=== PATIENT | male | born 1955 | race Caucasian/White ===

== ENCOUNTER → 2019-10-27 08:49 | Outpatient (CLI) | payer OTHER, SELFPAY ==
[2017-07-02 17:30] VITALS: BMI 31.4
[2019-10-27 10:45] LABS: ALB/GLOB Ratio 1.1 RATIO (0.9-2.4); AST(SGOT) 23 U/L (15-37); Alanine Aminotransfer ALT/SGPT 32 U/L (16-61); Albumin, Serum 3.9 g/dL (3.2-5.0); Alkaline Phosphatase 47 U/L (45-117); Anion Gap 4 (5-15); BUN 13 mg/dL (7-18); BUN/Creat Ratio 14.7 RATIO (10-20); Chloride 107 mmol/L (98-107); Cholesterol 235 mg/dL (200); Creatinine, Serum 0.89 mg/dL (0.70-1.30); EST Glomerular Filtration Rate 92 mL/min (>60); Est Glom Filt Rate - Afr Amer 112 mL/min (>60); Globulin 3.6 g/dL (2.2-4.2); Glucose 85 mg/dL (74-106); High Density Lipoprotein 41 mg/dL; PSA,Total - Annual Screen 0.96 ng/mL (0.00-4.00); Potassium 4.2 mmol/L (3.5-5.1); Protein, Total 7.5 g/dL (6.4-8.2); Sodium Level 140 mmol/L (136-145); Triglycerides 168 mg/dL; Very Low Density Lipoprotein 34 mg/dL (5-40)
[2019-10-27 11:13] LABS: Hepatitis C Antibody Non-Reactive (Nonreactive)
== END ==
LOC: LABSPEC 09:00 → LAB 09:01
DX: I10 Essential (primary) hypertension (principal); E78.5 Hyperlipidemia, unspecified; Z12.5 Encounter for screening for malignant neoplasm of prostate; Z13.9 Encounter for screening, unspecified
CPT/HCPCS: 36415; 80053; 80061; 84153; 86803; G0103

== ENCOUNTER → 2019-11-04 09:38 | Outpatient (CLI) | payer OTHER, SELFPAY ==
[2019-11-04 10:00] LABS: Hematocrit 44.9 % (40-54); Hemoglobin 14.9 g/dL (13.0-16.5); Mean Corp Hgb Conc 33.2 g/dL (32-36); Mean Corpuscular Hgb 31.1 pg (27.0-32.0); Mean Corpuscular Volume 93.7 fL (80-94); Mean Platelet Vol. 8.1 fl (6.2-12.0); Platelet Count 239 K/mm3 (150-450); RBC Distribution Width CV 12.1 % (11.6-14.6); RBC Distribution Width SD 41.9 fl (35.1-43.9); Red Blood Count 4.79 M/mm3 (4.6-6.2); White Blood Count 6.3 K/mm3 (4.4-11.0)
[2019-11-04 11:12] LABS: ALB/GLOB Ratio 1.1 RATIO (0.9-2.4); AST(SGOT) 30 U/L (15-37); Alanine Aminotransfer ALT/SGPT 34 U/L (16-61); Albumin, Serum 4.1 g/dL (3.2-5.0); Alkaline Phosphatase 46 U/L (45-117); Anion Gap 3 (5-15); BUN 13 mg/dL (7-18); BUN/Creat Ratio 14.1 RATIO (10-20); Calcium,Total 9.3 mg/dL (8.5-10.1); Chloride 106 mmol/L (98-107); Creatinine, Serum 0.92 mg/dL (0.70-1.30); EST Glomerular Filtration Rate 88 mL/min (>60); Est Glom Filt Rate - Afr Amer 107 mL/min (>60); Globulin 3.8 g/dL (2.2-4.2); Glucose 87 mg/dL (74-106); Potassium 4.2 mmol/L (3.5-5.1); Protein, Total 7.9 g/dL (6.4-8.2); Sodium Level 139 mmol/L (136-145)
[2019-11-05 16:49] LABS: t-Transglutaminase IgA <2 U/mL (0-3)
== END ==
DX: R10.9 Unspecified abdominal pain (principal); R14.0 Abdominal distension (gaseous)
CPT/HCPCS: 36415; 80053; 83516; 85027

== ENCOUNTER 2019-11-23 05:32 | Day surgery (SDC) | payer OTHER, SELFPAY ==
[2019-11-11 10:37] VITALS: BMI 30.6
--- NOTE | 2019-11-11 10:43 | HP_ITS ---
Intake Vital Signs 11/11/19 Height 6 ft 1 in 11/11/19 Weight: 232 lb 11/11/19 BMI 30.6 11/11/19 BP 149/90 H 11/11/19 Blood Pressure Location Rt brachial 11/11/19 BMI 31.4 Intake Visit Reasons: abd pain Working Second Hand Required: No Is patient in pain?: Yes (abdomen) Allergies No Known Allergies Allergy (Verified 11/11/19 10:38) Medications Verapamil [Calan Sr] 180 mg PO DAILY 07/02/17 [History Confirmed 11/11/19] PFSH Medical History HTN (hypertension) (Chronic) Surgical History S/P inguinal hernia repair (Acute) Family History Father Heart disease Social History (Updated 11/11/19 @ 10:43 by Bobby Lewis MD) Smoking Status: Never smoker alcohol intake: current alcohol intake frequency: a few times a month HPI HPI HPI: COREY LYLE, is a 64 M who presents to the office today for HPI HPI Surgical H&P: Yes HPI: COREY LYLE, is a 64 M who presents to the office today for surgical consultation regarding epigastric pain. Patient's primary care physician is Dr. Louise Gonzáles and a copy of my report will return to her. 64-year-old gentleman. Recently he has been having problems with twinges of epigastric pain. He does not describe classic reflux symptoms. He states that he eats a blander diet the pain will be somewhat better. He takes Pepto-Bismol and that helps the pain. He does not strictly correlate the discomfort with any any particular type of food. Now it is of note that August 10, 2018 because of more of a left-sided pain he had a CT scan performed which showed thickening of the distal descending and proximal sigmoid colon consistent with acute diverticulitis. It also demonstrated a small hiatal hernia and a small right inguinal hernia the patient states that he has had 4 episodes of diverticulitis. He actually carries a routine prescription of ciprofloxacin and metronidazole. July 2019 while vacationing in [place] he had a bout of severe left lower quadrant pain. He dropped back to a liquid diet and took ciprofloxacin metronidazole and the pain resolved. He claims that at age 64 has had a total of 4 previous colonoscopies. He has had a previous history of colon polyps. His most recent colonoscopy according to him was 3 years ago. He was told at that time that his next routine scope exam would be 5 years from that date. The patient denies any difficulty in the right groin. He claims he has had 2 previous left inguinal herniorrhaphies and has no pain on that side. His most recent laboratory was November 04, 2019 that was performed via the [facility] demonstrating a white count of 6.3 with a hemoglobin 14.9 hematocrit 44.9 platelet count 239,000. BUN is 13 and creatinine 0.92. Liver function tests were normal. He did have a cholesterol of 235. Triglyceride of 168. The patient has been started on vitamin D and will continue for total 30 days prior to starting his statin medication ROS General General: No weight change, appetite, fatigue, colon cancer, breast cancer or weakness HEENT HEENT: No difficulty swallowing, eye injury, eye surgery, swollen glands or hoarseness Endo Endocrine: No thyroid disease, diabetes mellitus, thyroid cancer, Hair loss, heat intolerance or cold intolerance Skin Skin: No rash or changing moles Breast Breast: No left breast lump, right breast lump, nipple discharge, breast pain, abnormal mammogram, abnormal US or breast enlargement Musc Musculoskeletal: Yes back problems; no arthritis, rheumatoid arthritis, gout or joint pain Cardio Cardiovascular: Yes high blood pressure; no murmur, pacemaker, heart disease, atrial fibrillation, heart attack, heart stent, palpitations, shortness of breat with exertion or chest pain Psych Psychiatric: No depression, anxiety or hearing voices Resp Respiratory: No shortness of breath, No sleep apnea, No cough, No COPD, No asthma, No emphysema, No wheezing Gastro Gastrointestinal: Yes abdominal pain, No nausea or vomiting, No diarrhea, Yes constipation, No blood in stool, No acid reflux, No hemorrhoids, No ulcers, No gallbladder problem, No black,tarry stools Shayne Hematologic: No blood thinners, No blood disorders, No bleeding, No anemia, No blood clots Neuro Neurologic: No system reviewed and no additional complaints, except as docu, No as per HPI, No abnormal walking, No abnormal hearing, No abnormal movements, No abnormal speech, No behavioral changes, No burning sensations, No confusion, No seizure-like activity, No unsteadiness, No dizziness, No localized weakness, No frequent falls, No headache(s), No lack of coordination, No loss of vision, No memory loss, No numbness, No other visual disturbances, No radiating pain, No restless legs, No sensory deficit, No fainting, No tingling, No tremor(s), No weakness, No other Exam Const General: cooperative, healthy appearing, comfortable, no acute distress Nutritional Appearance: overweight Orientation: alert, awake [facility] Head: normal to inspection Chest Chest palpation & inspection: normal inspection of the chest Breast Palpation: No nipple discharge Resp Effort & Inspection: normal respiratory effort Auscultation: clear to auscultation bilaterally Cardio Rate: regular rate Rhythm: regular rhythm Heart Sounds: no murmurs GI Palpation: soft, no hepatosplenomegaly Auscultation: normal bowel sounds Other: No ventral hernias identified Other: Testicles are descended, slightly high riding right testicle, no focal mass, left groin very solid and intact, right groin very slight give at the external ring, nontender Skin General: no rashes or lesions noted Neuro Cognition: normal cognition Extrem General: no calf tenderness bilaterally Psych Affect: normal affect Assessment & Plan Problems 1. Epigastric pain R10.13 2. Right inguinal hernia K40.90 3. History of diverticulitis Z87.19 4. Hiatal hernia K44.9 5. Hyperlipidemia, unspecified hyperlipidemia type E78.5 Plan 64-year-old gentleman with epigastric pain of undetermined etiology. He has a known hiatal hernia and a known right inguinal hernia. The right inguinal hernia currently is not symptomatic and is small. He has had previous bouts of proximal sigmoid diverticulitis but he is nontender in that location and the patient notes that his current symptoms do not correlate with his previous bouts of diverticulitis. The patient states that he has strong family history of gallbladder disease. CT imaging does not demonstrate gallbladder problems or stones. I am suspecting probably a gastritis or reflux issue. I recommended the patient a esophagogastroduodenoscopy with anticipated biopsy is indicated. He is aware of the technique, benefit, risk, alternatives. If that examination is completely unremarkable then I would offer him a gallbladder ultrasound. If that is not remarkable then I do not immediately have an answer or resolution to his discomfort. He has had an opportunity to ask and have questions answered. Wilma was not with him today. We will schedule and proceed at his discretion. CC: Dr. Louise Lewis M.D., F.A.C.S. Orders Orders: EGD Today K44.9, R10.13 Coding Level of Care Code Off vis,new,level 4 Diagnoses Epigastric pain R10.13 Right inguinal hernia K40.90 History of diverticulitis Z87.19 Hiatal hernia K44.9 Hyperlipidemia, unspecified hyperlipidemia type E78.5 ??Hyperlipidemia type: unspecified 11/11/19 1043 <Electronically signed by Bobby ryan MD> Date _ Bobby Lewis MD I have re-examined the patient. There are no clinical changes since date of exam.
[2019-11-23] VITALS (8 sets, daily range): BP systolic 110–155; BP diastolic 70–105; PULSE 63–71; RESP 16; TEMP 35.8–36.8; O2SAT 96–100; BMI 30.6
[2019-11-23] MEDS: Lactated Ringers 1,000 ML 100 ML IV (06:12)
--- NOTE | 2019-11-23 06:30 | EGD_PTH ---
PATIENT: COREY LYLE LOC: EN U#:[id number] AGE/SX: 64/M ROOM: RE11/23/[address]: Dr. Bobby Lewis MD : 1955 BED: DIS: 11/23/2019 SPEC #: [id number] RECD: 11/23/19 09:06 STATUS: KULDIP MICHELLE #: [id number] PATRICIA: 11/23/19 06:[address]: Bobby Lewis DEPT: SURGICAL PATHOLOGY RECD BY: Hema Hathaway ENTERED: 11/23/19 13:26 SP TYPE: EGD BIOPSY OTHR DR: Dr. Louise Arreola, DO Tissues: A - Duodenum, NOS B - Gastric mucous membrane C - Esophageal mucous membrane Procedures: Special Stain Group II Surgery Specimen Level IV Alcian Blue/PAS (control) HEADER OPERATION: EGD (MOD) PRE-OP DIAGNOSIS: Epigastric pain TISSUE SUBMITTED: A - Duodenum biopsy, B - Antral biopsy for H. pylori and histo, C - Distal esophagus biopsy MICROSCOPIC DIAGNOSIS A. Duodenum, biopsy: Fragments of duodenal mucosa with mild nonspecific chronic inflammation, Lei gland hyperplasia and gastric metaplasia. B. Antral biopsy: Mild gastritis. See microscopic description and comment. C. Distal esophagus, biopsy: Fragments of gastroesophageal mucosa with changes consistent with gastroesophageal reflux disease and acute and chronic inflammation. Intestinal metaplasia (goblet cell metaplasia) is not identified. See comment. SJ:tiarra 11/24/19 COMMENT B. The results of immunohistochemistry for Helicobacter pylori will be reported separately ([id number]). C. Alcian blue/PAS stain with matched control is used in the evaluation of the specimen. MICROSCOPIC DESCRIPTION Slides are reviewed. B. The specimen shows fragments of gastric mucosa with chronic inflammatory cell infiltrates in the lamina propria consisting of lymphocytes and plasma cells, consistent with mild chronic gastritis. GROSS DESCRIPTION A - Received in fixative is one container labeled with the patient's name and designated duodenum biopsy. The specimen consists of two irregular fragments of light salas soft tissue that in aggregate measure 0.6 x 0.3 x 0.1 cm. The specimen is totally submitted in one cassette. B - Received in fixative is one container labeled with the patient's name and designated antral biopsy. The specimen consists of one irregular fragment of light salas soft tissue that measures 0.5 x 0.3 x 0.1 cm. The specimen is totally submitted in one cassette. C - Received in fixative is one container labeled with the patient's name and designated distal esophagus biopsy. The specimen consists of multiple irregular fragments of light salas soft tissue that in aggregate measure 1 x 0.5 x 0.1 cm. The specimen is totally submitted in one cassette. / SJ:rg 11/23/19 TC:3 CPT: 97353 x3, 99870
--- NOTE | 2019-11-23 06:30 | IMM_PTH ---
PATIENT: COREY LYLE LOC: EN U#:[id number] AGE/SX: 64/M ROOM: RE11/23/[address]: Dr. Bobby Lewis MD : 1955 BED: DIS: 11/23/2019 SPEC #: [id number] RECD: 11/23/19 14:44 STATUS: KULDIP REJesús #: [id number] PATRICIA: 11/23/19 06:[address]: Bobby Lewis DEPT: IMMUNOHISTOCHEMISTRY RECD BY: Yessi Mata ENTERED: 11/23/19 14:44 SP TYPE: IMMUNO OTHR DR: Dr. Louise Arreola, Tissues: B - Stomach, NOS Procedures: H Pylori (initial) PHYSICIAN & INSTITUTION [place] [id number] SPECIMEN INFORMATION: Tissue Source: B - Antral biopsy Clinical Info: Epigastric pain Specimen Number: [id number] CPT code: 31376 METHODOLOGY: Deparaffinized sections of prefer/formalin-fixed tissue or PAP/DQ stained slides are incubated with monoclonal/polyclonal antibodies/oligonucleotide probes. Localization is made via biotin free immunoperoxidase method. Appropriate controls are performed and reacted as expected. Results on target cell population are indicated in the following table: RESULTS: ANTIBODY / CLONE RESULT Block B H Pylori (polyclonal) negative These tests were developed and their performance characteristics determined by [facility]. They may not have been cleared or approved by the U.S. Food and Drug Administration. The FDA has determined that such clearance or approval is not necessary. INTERPRETATION: B. Antral biopsy: Negative for Helicobacter pylori organisms. SJ:tiarra 11/24/19
--- NOTE | 2019-11-23 06:42 | OP.EGD_ITS ---
Patient Name: Stephen Nair Procedure Date: 11/23/2019 6:11 AM Date of : 1955 Age: 64 Procedure: Upper GI endoscopy Indications: Epigastric abdominal pain Providers: Bobby Lewis MD Referring MD: Louise Babcock Do Medicines: Midazolam 3.5 mg IV, Meperidine 100 mg IV Complications: No immediate complications. Procedure: Pre-Anesthesia Assessment: - Prior to the procedure, a History and Physical was performed, and patient medications and allergies were reviewed. The patient's tolerance of previous anesthesia was also reviewed. The risks and benefits of the procedure and the sedation options and risks were discussed with the patient. All questions were answered, and informed consent was obtained. Prior Anticoagulants: The patient has taken no previous anticoagulant or antiplatelet agents. ASA Grade Assessment: II - A patient with mild systemic disease. After reviewing the risks and benefits, the patient was deemed in satisfactory condition to undergo the procedure. After obtaining informed consent, the endoscope was passed under direct vision. Throughout the procedure, the patient's blood pressure, pulse, and oxygen saturations were monitored continuously. The gastroscope was introduced through the mouth, and advanced to the second part of duodenum. The upper GI endoscopy was accomplished without difficulty. The patient tolerated the procedure well. Moderate Sedation: Moderate (conscious) sedation was personally administered by the endoscopist. The following parameters were monitored: oxygen saturation, heart rate, blood pressure, and response to care. Total physician intraservice time was 15 minutes. Scope In: 6:30:58 AM Scope Out: 6:36:31 AM Total Procedure Duration Time 0 hours 5 minutes 33 seconds Findings: LA Grade A (one or more mucosal breaks less than 5 mm, not extending between tops of 2 mucosal folds) esophagitis with no bleeding was found 39 cm from the incisors. Biopsies were taken with a cold forceps for histology. A medium-sized hiatal hernia was present. Diffuse minimal inflammation characterized by erythema was found in the gastric antrum. Biopsies were taken with a cold forceps for histology. Diffuse mildly erythematous mucosa without active bleeding and with no stigmata of bleeding was found in the duodenal bulb. Biopsies were taken with a cold forceps for histology. Impression: - LA Grade A reflux esophagitis. Biopsied. - Medium-sized hiatal hernia. - Chronic gastritis. Biopsied. - Erythematous duodenopathy. Biopsied. Recommendation: - Discharge patient to home. - Resume previous diet. - Continue present medications. - Use Prilosec (omeprazole) 40 mg PO daily. - Telephone my office for pathology results in 1 week. Procedure Code(s): --- Professional --- 36522, Esophagogastroduodenoscopy, flexible, transoral; with biopsy, single or multiple 66144, 59, Moderate sedation services provided by the same physician or other qualified health urgent care nurse practitioner performing the diagnostic or therapeutic service that the sedation supports, requiring the presence of an independent trained observer to assist in the monitoring of the patient's level of consciousness and physiological status; initial 15 minutes of intraservice time, patient age 5 years or older Diagnosis Code(s): --- Professional --- K21.0, Gastro-esophageal reflux disease with esophagitis K44.9, Diaphragmatic hernia without obstruction or gangrene K29.50, Unspecified chronic gastritis without bleeding K31.89, Other diseases of stomach and duodenum R10.13, Epigastric pain CPT copyright 2017 [employer]. All rights reserved. The codes documented in this report are preliminary and upon teen counselor review may be revised to meet current compliance requirements. Bobby Lewis MD 11/23/2019 6:41:33 AM This report has been signed electronically. Number of Addenda: 0 Note Initiated On: 11/23/2019 6:11 AM
== END 2019-11-23 07:39 | disposition home or self-care (01) ==
LOC: EN 05:32 → AC 05:34
PROVIDERS: Family Provider Family Medicine; PCP Family Medicine; Referring Provider Family Medicine; Visit Provider Surgery
PROC: (CPT 43239; principal; 2019-11-23 06:25)
DX: K21.0 Gastro-esophageal reflux disease with esophagitis (principal); K29.50 Unspecified chronic gastritis without bleeding; R10.13 Epigastric pain; I10 Essential (primary) hypertension; K44.9 Diaphragmatic hernia without obstruction or gangrene; K40.90 Unilateral inguinal hernia, without obstruction or gangrene, not specified as recurrent; E78.5 Hyperlipidemia, unspecified; K31.89 Other diseases of stomach and duodenum; Z79.899 Other long term (current) drug therapy; Z86.010 Personal history of colon polyps
CPT/HCPCS: 43239; 88305; 88313; 88342; 99152; J7120

== ENCOUNTER → 2020-02-03 15:09 | Outpatient (CLI) | payer OTHER, SELFPAY ==
[2019-11-23 05:52] VITALS: BMI 30.6
--- NOTE | 2020-02-03 16:03 | MRI_ITS ---
STUDY: MRI RIGHT KNEE REASON FOR EXAM: Male, 64 years old. Right knee increasing pain TECHNIQUE: Standardized fat and water weighted pulse sequences were obtained in all 3 orthogonal planes. COMPARISON: None. FINDINGS: Large oblique undersurface tear is present at the peripheral one third aspect of the posterior horn of the medial meniscus. A small oblique undersurface tear is also present in the body of the medial meniscus. The anterior horn is normal. There is diffuse, less than 50% thickness articular cartilage loss of the medial femorotibial compartment. Normal medial femoral condyle and tibial plateau. Normal medial collateral ligamentous complex (MCL). Normal distal semimembranosus, gracilis and semitendinosus tendons. A radial tear is present at the free edge of the body of the medial meniscus. Oblique undersurface tearing is also seen at the junction of the body and peripheral aspect of the posterior horn of the lateral meniscus. There is signal heterogeneity within the articular cartilage of the lateral femorotibial compartment without significant thinning and with an intact articular cartilage surface. Normal lateral femoral condyle and tibial plateau. Normal proximal tibiofibular articulation. Normal lateral collateral (fibular) ligament. Normal popliteus tendon. Normal biceps femoris tendon. Normal anterior cruciate ligament (ACL). Normal posterior cruciate ligament (PCL). Normal congruent patellofemoral articulation. Normal hyaline cartilage of the patellofemoral compartment. Normal medial and lateral patellar retinaculum. Normal quadriceps tendon. Normal patellar tendon. Normal Hoffa''s fat pad. There is a small volume joint effusion. The soft tissues are unremarkable. The otherwise visualized osseous structures are unremarkable. MRI/Lower Ext Joint Only (Routine) IMPRESSION: 1. Tears of the medial and lateral menisci. Electronically Signed: Philip Mendoza MD at 23:08 EDT , Service support ,
--- NOTE | 2020-02-03 16:04 | MRI_ITS ---
PROCEDURE: MRI LOWER EXTREMITY RIGHT TIBIA/FIBULA REASON FOR EXAM: Male, 64 years old. calf pain area marked with beads TECHNIQUE: Standardized fat and water weighted pulse sequences were obtained in all 3 orthogonal planes. The left tibia and fibula are included in the [id number] on several sequences. COMPARISON: MRI of the left knee dated arch 2019 FINDINGS: Mixed signal intensity 9.06 x 2.45 cm x 4.78 ovoid lobular cystic lesion seen in the most peripheral medial side of the semimembranosus muscle, at the upper to mid one third aspect of the calf. The lesion appears to be on the investing fascia surface of the muscle given the underlying wall is well circumscribed exerting mass effect on the underlying muscle fibers. There is a linear high density fluid tail at the superior aspect of the lobular mass lesion extending up to the popliteal fossa/posterior aspect of the knee. Intramuscular/fascial ganglion formation or herniation from a popliteal/Duran''s cyst or ruptured components of a cyst are possibilities, however a soft tissue or synovial neoplasm is considered and has to be ruled out; therefore postcontrast imaging is recommended for further assessment. A small amount of fluid is seen around this lesion and is between the investing fascia of the muscles on the medial side of the calf and the underlying subcutaneous fat. Normal tibia and fibula, without a periosteal, cortical or cancellous marrow abnormality. No marrow edema or fracture lines or osteochondral lesions are seen. No malignant appearing lesion is seen. Normal anterior, lateral, and remaining posterior calf compartments, with normal muscles, crural fascia and intermuscular septa. There is no solid, cystic or lipomatous mass lesion of the subcutis adipose space. MRI/Lower Ext/No Jt/w/o IMPRESSION: 1. Mixed signal intensity 9.06 x 2.45 cm x 4.78 ovoid lobular cystic lesion seen in the most peripheral medial side of the semimembranosus muscle, at the upper to mid one third aspect of the calf. 2. The lesion appears to be in between the investing fascia surface of the muscle, given the underlying wall is well circumscribed exerting mass effect on the underlying muscle fibers. 3. There is a linear high density fluid tail at the superior aspect of the lobular mass lesion extending up to the popliteal fossa/posterior aspect of the knee. Intramuscular/fascial ganglion formation or herniation from a popliteal/Duran''s cyst or ruptured components of a cyst are possibilities. 4. However a soft tissue or synovial neoplasm is considered and has to be ruled out; therefore postcontrast imaging is recommended for further assessment. Electronically Signed: Philip Mendoza MD at 23:55 EDT , Service support ,
== END ==
PROVIDERS: PCP Family Medicine; Referring Provider Orthopaedic Surgery; Visit Provider Orthopaedic Surgery
DX: M79.661 Pain in right lower leg (principal); M25.561 Pain in right knee; G89.29 Other chronic pain
CPT/HCPCS: 73718; 73721

== ENCOUNTER 2020-04-03 10:27 | Day surgery (SDC) | payer OTHER, SELFPAY ==
[2019-11-23 05:52] VITALS: BMI 30.6
[2020-03-28 16:20] LABS: Hematocrit 43.8 % (40-54); Hemoglobin 14.4 g/dL (13.0-16.5); Mean Corp Hgb Conc 32.9 g/dL (32-36); Mean Corpuscular Volume 94.4 fL (80-94); Mean Platelet Vol. 9.1 fl (6.2-12.0); Platelet Count 257 K/mm3 (150-450); RBC Distribution Width CV 12.2 % (11.6-14.6); RBC Distribution Width SD 42.1 fl (35.1-43.9); Red Blood Count 4.64 M/mm3 (4.6-6.2); White Blood Count 6.1 K/mm3 (4.4-11.0)
[2020-03-28 16:40] LABS: Anion Gap 7 (5-15); BUN 16 mg/dL (7-18); BUN/Creat Ratio 18.3 RATIO (10-20); Chloride 105 mmol/L (98-107); Creatinine, Serum 0.88 mg/dL (0.70-1.30); EST Glomerular Filtration Rate 94 mL/min (>60); Est Glom Filt Rate - Afr Amer 113 mL/min (>60); Glucose 85 mg/dL (74-106); Potassium 4.1 mmol/L (3.5-5.1); Sodium Level 141 mmol/L (136-145)
[2020-04-03 10:40] VITALS: BP 137/84; PULSE 66; RESP 15; TEMP 36.7; O2SAT 100; BMI 31.0
[2020-04-03] MEDS: Lactated Ringers 1,000 ML 100 ML IV (11:02)
[2020-04-03] MEDS: Cefazolin 2 GM in 0.9% Normal Saline 100 ML IV (12:00)
[2020-04-03] MEDS: Epinephrine (1 mg/ml) 1 MG/ML VIAL ×2 (12:32→12:50)
[2020-04-03] MEDS: Bupiv/Epi 0.5% Mpf 30 ML Vial (13:00)
[2020-04-03 13:17] VITALS: BP 136/89; BP 137/84; PULSE 64; RESP 18; TEMP 36.3; O2SAT 97
[2020-04-03 13:30] VITALS: BP 131/89; BP 137/84; PULSE 63; RESP 18; O2SAT 96
[2020-04-03 13:38] VITALS: BP 125/96; BP 137/84; PULSE 67; RESP 18; TEMP 36.2; O2SAT 96
[2020-04-03 14:22] VITALS: BP 137/84
--- NOTE | 2020-04-03 15:11 | PCM.OPRPT ---
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 Surgery/Procedure Performed:: Diagnostic and Operative arthroscopy right knee Type of Anesthesia:: General Anesthesiologist: Anselmo Oro - Admit VTE Documentation VTE Present on Admission: No VTE Mechan Device Prophylaxis: SCD's, Thigh High WILL Hose VTE Pharm Prophylaxis ordered?: Yes Reason prophylaxis not ordered:: Treatment Not Indicated
--- OUTSIDE RECORDS SUMMARY | 2020-08-29 12:14 | XMS RPT_ITS | CCD ---
:1955 External Reference #:[id number] Author Organization [facility] Care Team Providers Name Role Phone Van Nostran, Shell Unavailable Unavailable Van Nostran, Shell Unavailable Unavailable Van Nostran Unavailable Unavailable Van Nostran, E Unavailable Unavailable Linz Unavailable Unavailable Gellis, D Unavailable Unavailable Van Nostran Unavailable Unavailable Linz Unavailable Unavailable Allergies Reported Allergen Reaction(s) Severity Date of Onset Location rosuvastatin [facility] ([id number]) Medications Medication Name Sig Date Prescriber Location Ascorbic Acid Vitamin C CAPS Refills: 0 M Rajani [facility] Active (04880) Vitamin C CAPS Refills: 0 [facility] (19586) Vitamin C CAPS Refills: 0 [facility] ([id number]) Aspirin Aspirin 81 MG Oral 04-22-2017 Louise Gardneron Family Tablet Delayed [facility] Release TAKE 1 (07877) TABLET EVERY DAY Quantity: 1 Refills: 3 Louise Gonzáles DO Start : 22-Apr-2017 Active 1000 Tablet Delayed Release Bottle Docosahexaenoate / Fish Oil 1000 MG SEVERIANOCox [place] claudia Family Eicosapentaenoate Oral Capsule Physicians Refills: 0 Active (49249) Multiple Vitamins Oral Multiple Vitamins SEVERIANO-Louise Family Tablet Oral Tablet Physicians Refills: 0 Active (84012) Multiple Vitamins Oral Tablet Refills: 0 [facility] (92405) Active Multiple Vitamins Oral Tablet Refills: 0 [facility] (95547) Active Wanchese-3 Acid Ethyl Fish Oil 1000 MG Oral Lucio Granger Esters (CUSTODIAL) Capsule Refills: 0 Physician s ([id number]) Active rosuvastatin Rosuvastatin Calcium Louise Melo Family 20 MG Oral Tablet 9 [facility] (22695) Take 1 tablet daily Quantity: 30 Refills: 3 Louise Gonzáles DO Start : 02-Nov-2019 Active Rosuvastatin Calcium 20 MG 11-02-2019 Louisearthur Granger Oral Tablet Take 1 tablet Physic ians (58719) daily Quantity: 30 Refills: 3 Louise Gonzáles DO Start : 02-Nov-2019 Active Verapamil Verapamil HCl ER 180 MG 05-09-2015 Louise Yost n Lucio Granger Oral Tablet Extended Physici ans (22378) Release TAKE 1 TABLET DAILY. Quantity: 90 Refills: 3 Louise Gonzáles DO Start : 09-May-2015 Active Problems Active Problems Category Problem Name Status Date Location Abdominal pain Abdominal pain - cause Active [facility] unknown Physicians (321 81) Cardiac dysrhythmias Ventricular premature Active [facility] beats Physicians (717 81) Conditions associated Vertigo Active [facility] dago [facility] with dizziness or Physicians (66768) vertigo Coronary atherosclerosis Coronary Active [facility] and other heart disease arteriosclerosis Physicians (71527) Diabetes mellitus Hyperglycemia Active [facility] without complication Physici ans (09438) Disorders of lipid Hyperlipidemia Active [facility] metabolism Physicians (480 81) Diverticulosis and Diverticular disease Active [facility] diverticulitis Physicians (3 6356) Esophageal disorders Gastroesophageal reflux Active [facility] disease Physicians (087 81) Essential hypertension Benign essential Active [facility] hypertension Physicians (047 81) Fluid and electrolyte Hyperkalemia Active [facility] disorders Physicians (166 81) Other and unspecified Polyp of colon Active [facility] benign neoplasm Physicians ( 02830) Other connective tissue H/O: back problem Active [facility] disease Physicians (678 81) Other connective tissue Muscle pain Active [facility] disease Physicians (240 81) Other ear and sense Sensorineural hearing Active [facility] organ disorders loss, bilateral Physician s (55405) Other gastrointestinal Abdominal bloating Active [facility] disorders Physicians (652 81) Other gastrointestinal Scrotal mass Active [facility] Family disorders Physicians (419 81) Other gastrointestinal Personal history of Active [facility] disorders other diseases of the Physic ians (89539) digestive system Other injuries and Motion sickness Active [facility]Sh[facility] dago Family conditions due to Physicians (64562) external causes Other lower respiratory Cough Active -S haron Family disease Physicians (379 81) Other nervous system Numbness and tingling Active -Louise Family disorders sensation of skin Physicians (70909) Other nervous system Numbness of upper limb Active [facility] disorders Physicians (429 81) Other nervous system H/O: vertigo Active [facility] on Family disorders Physicians (649 81) Other nervous system Tingling of skin Active - Louise [facility] disorders Physicians (419 81) Other non-traumatic Joint pain Active [facility] joint disorders [facility] ( 66495) Other non-traumatic Knee pain Active [facility] joint disorders [facility] ( 56594) Other screening for MRI of lumbar spine [facility] suspected conditions abnormal Physici ans (21492) (not mental disorders or infectious disease) Other skin disorders Excessive sweating Active [facility] (218 81) Other upper respiratory Bronchospasm Active -S haron Family disease Physicians (716 81) Screening and history of H/O: anxiety state Active [facility] mental health and Physicians (44454) substance abuse codes Spondylosis; Backache Active -Louise Famil y intervertebral disc Physicia ns (97237) disorders; other back problems Unclassified Encounter for screening Active 11-06-2017 [facility] (0 0000) disorders / Z13.6(ICD-10) Unclassified Encounter for screening, Active 11-06-2017 [facility] unspecified / Center (67402) Z13.9(ICD-10) Past or Other Problems Category Problem Name Status Date Location Other nutritional; Obese class I [facility] endocrine; and Physicians (4 2669) metabolic disorders Residual codes; Immunization due [facility] Family unclassified Physicians (057 18) NEGATED: Highlighted Disease Completed [facility]Denis on Family row has not Physicians (793 86) occurred!Residual codes; unclassified Unclassified Encounter for 11-06-2017 [facility] Medic al screening, Center (08738) unspecified Unclassified History of clinical Completed [facility] n Family finding in subject Physician s (44763) Unclassified Patient encounter Completed [facility] Family status Physicians (442 81) Results Result Name Value Range Unit Interpretation Flag Date Location cardiac stress test on 2020-06-28 Cardiac [facility], Stress Lab, [address], [address], [place], [place] Normal 06-28-2020 Stress [address] [facility] Patient Name: Stephen Nair Ordering Physician: ([id number]) Study Date: 06/28/2020 Reading Physician: [id number] Judy Rebolledo MD MRN/PID: [id number] Supervising Physician: Accession/Order#: [id number] Referring Physici an: Louisearthur Gonzáles DO Date of : 1955 PCP: Gender: M Fellow: Admission Status: Outpatient Radiation Therapy Technician: Melissa Thomas Height: 185.42 cm Nurse: Lise Sinha RN Weight: 104.33 kg Compounding And Finishing Supervisor: ALICIA BSA: 2.28 m2 Technologist: BMI: 30.35 kg/m2 Additional Staff: Age: 65 years cc report to: Patient Location: [place] [facility] cc report to: Lab Study Type: Cardiac Stress Test Diagnosis/ICD: R07.9-Chest pain, unspecified Indication: Chest Pain Atypical Procedure/CPT: Stress Test Interpretatio [id number]; Stress Test Supervision-[id number] Falls Risk: Study Details: Correct proce dure and correct patient verified verbally and with ID Band checked. Patient History: . 65 yo mal e with one episode of midsternal chest pain occuring at rest. PMH Hypertension. Allergies: None. Medications: The patient's p rescribed medication is Calan. The patient took medications as prescribed. Patient Performance: The pat ient exercised to stage IV on a Jose Luis protocol for 12 minutes and 00 seconds, achieving 13.7 METS. The peak heart rate achieved was 162 bpm, which was 103 % of the age predic david target heart rate of 157 bpm. The resting blood pressure was 140/84 mmHg with a heart rate of 72 bpm. The standing blood pressure was 132/82 mmHg with a heart rate of 93 bpm. The patient's functiona l capacity was above average . The patient developed no symptoms during the stress exam. The blood pressure response was normal. The test was terminated due to: fatigue. Patient has met the discharge cri teria and is discharged to home. Baseline ECG: Resting ECG sh owed normal sinus rhythm with nonspecific ST-T wave changes and normal tracing. Stress ECG: Stress ECG showe d sinus tachycardia, with ocasional PVCs. No ST changes. Stress Stage Data: +---+------+-------+ + + HR Sys BP Welch BP RPE Comments +---+------+-------+ + + 72 140 84 +---+------+-------+ + + 93 132 82 +---+------+-------+ + + 105 138 80 11=Fairly light 3 minutes +---+------+-------+ + + 118 146 76 12=Fairly light 6 minutes +---+------+-------+ + + 134 160 74 14=Somewhat hard 9 minutes +---+------+-------+ + + 162 17=Very hard 12 minutes +---+------+-------+ + + Recovery ECG: Recovery ECG s howed sinus tachycardia, with no abnormal findings. The heart rate recovery was normal. + +---+------+-------+---------+ HR Sys BP Welch BP Comments + +---+------+-------+---------+ Recovery I 148 210 72 00:25 + +---+------+-------+---------+ Recovery II 110 188 70 2 minute + +---+------+-------+---------+ Recovery III 95 162 78 4 mnutes + +---+------+-------+---------+ Recovery IV 86 152 80 6 minutes + +---+------+-------+---------+ Summary: 1. Negative stress EKG for ischemia. 2. Above average functional capacity for age. 3. No exercise associated cardiac symptoms were noted. 4. Appropriate blood pressure response with exercise. [id number] Judy Rebolledo MD Electronically signed on 06/30/2020 at 1:18:38 PM Final vitamin b12 on 2019 Cobalamin (Vitamin B12) 375 211 - 911 pg/mL Normal 2019 [facility] [Mass/Vol] [place] (0 0000) Comment: Performed By: #### VTB12 ### # [facility] [address] [place] [address] tsh with reflex to free t4 if abnormal on 2020-02-02 TSH Qn 1.91 0.44 - 3.98 mIU/L Normal 02-02-2020 [facility] (69276) Comment: Result Comment: Note new ped iatric reference range as of 01/18/2020. TSH testing is performed usi ng different testing methodology at [facility] than at other [facility]. Direct res ult comparisons should only be made within the same method. Performed By: #### THYDS ### # [facility] [address] [place] [address] cnpn on 2020-01-20 CNPN Telephone (AGPOB1) Normal 01-20-2020 [facility] STEPHEN NAIR ([id number]) 1955 Medical Date Time Provider Department Center 01/20/20 ANUP RODRIGUEZ AGPOB1 (72136) During your visit today, we recorded the following informati on about you: Gayle Fisher 01/20/2020 4:48 PM Signed Called patient and left voice message to call me directly to schedule an ER FU for Calf Muscle Injury. Gayle Fisher January 20, 2020 4:47 PM Saw Ray [facility] Triage Pool ? Subject Line Format: Orthopedics / [Provider Nam e or Open AND Body Part] ?/ [Issue] Patient has been identified by name and Date of (Y/N): Y Patient: Stephen Nair Date of : 1955 Previous Provider Seen: N/A Body Part(s) Identified: right CALF Diagnosis/Reason For Visit: right CALF MUSCLE INJURY Reason for the call/escalation: ED DISCHARGE If reason for call/escalation is discharge from ED/ER or [facility] which facility was the patient seen at: [facility] ED 01/18 Was an appointment scheduled (Y/N): N Person calling if other than patient: N Return call to if other than patient: N Best contact number: [phone] Saw Mortensen January 20, 2020 ?8:36 AM Allergies As of Date: 01/20/2020 (No Known Allergies) Date Reviewed: 01/19/2020 Reviewed by: Meme (Rn) ABDIFATAH Ramirez - Fully Assessed Reason for Visit: Appointment [186] Prescriptions as of 01/20/2020 Sig: VERAPAMIL ER (SR) 180 MG TABL* Take 180 mg by mouth daily at * Problem List As Of Date: 01/20/2020 (None) Encounter Status:Closed by WHITEFATUMATY on 01/20/20 us dvt lower rt on 2020-01-19 US DVT LOWER RT * * *Final Report* * * Normal 0 01-19-2020 [facility] DATE OF EXAM: Jan 19 2020 [facility] - US DVT LOWER RT / ([id number]) PROCEDURE REASON: Leg swelling * * * * Physician Interpretation * * * * EXAMINATION: RIGHT LOWER EXTREMITY DEEP VENOUS ULTRASOUND DOPPLER IMAGING CLINICAL HISTORY: Lower extremity swelling TECHNIQUE: Grayscale with compression maneuvers, color Doppl er and spectral Doppler at rest and with augmentation of the right distal external iliac, common femoral, femoral and popliteal veins was performed. Grayscale with compression maneuvers of the peron eal and posterior tibial veins was performed. The right great and sm all saphenous veins were also imaged in grayscale with compression maneuve rs at their insertion to the deep system. The contralateral common femor al vein was imaged for comparison. Images were obtained and stored in a permanent archive. MQ: USLER_1 COMPARISON: None RESULT: RIGHT LOWER EXTREMITY PROXIMAL DEEP VEINS Distal External Iliac and Common Femoral Veins: Compression: Normal Doppler: Normal, spontaneous respirophasic flow. Normal response to augmentation. Femoral vein: Compression: Normal Doppler: Normal, spontaneous flow. Normal response to augmentation. Popliteal vein: Compression: Normal Doppler: Normal, spontaneous flow. Normal response to augmentation. CALF DEEP VEINS Peroneal veins: Normal compression. Posterior tibial veins: Normal compression. LEFT LOWER EXTREMITY (FOR COMPARISON) Common Femoral Vein: Compression: Normal Doppler: Normal, spontaneous respirophasic flow. Normal response to augmentation. IMPRESSION: Negative study for acute DVT in the right lower extremity. Custom Motorcycle Painter: RG Transcribe Date/Time: Jan 19 2020 7:18P Dictated by : MOSHE DE PAZ MD This examination was interpreted and the report reviewed and electronically signed by: MOSHE DE PAZ MD on Jan 19 2020 7:19PM EST ed prov note on ED PROV NOTE HNO ID: [id number] Normal 01-19-20 20 [facility] Author: Lemuel Paz [facility] Service: Emergency Medicine ([id number]) Author Type: Physician Type: ED Provider Notes Filed: 01/19/2020 7:59 PM Note Text: ED Provider Note Patient Name: Stephen Nair SERVICE DATE: 01/19/20 History Patient presents with: Leg Pain Patient presents complaining of right calf pain that started about a week. Patient states he did a new exercise at the gym and then gena yed volleyball had bilateral calf pain afterwards and then today felt something tear pop and had significant increased swelling in the right calf with a lap last couple days. No history DVT no shortnes s of breath. Pain is comfortable when he is not walking around. He is not on a blood thinner PAST MEDICAL HISTORY Diagnosis Date - Acid reflux - Hypertension PAST SURGICAL HISTORY Procedure Laterality Date - HERNIA REPAIR HX No family history on file. Social History Tobacco Use - Smoking status: Never Smoker - Smokeless tobacco: Never Used Substance and Sexual Activity - Alcohol use: Yes Comment: weekends - Drug use: No - Sexual activity: Not on file ALLERGIES No Known Allergies Review of Systems All other systems reviewed and are negative. Physical Exam BP 133/82 Pulse 71 Temp (Src) 97.9 (Temporal) Resp 16 Ht 6' 1 (1.85m) Wt 228 lb (103.4kg) SpO2 98% BMI 30.09 kg/(m2) . O2 Therapy: Room Air Physical Exam Vitals signs and nursing note reviewed. Constitutional: Appearance: Normal appearance. Musculoskeletal: Normal range of motion. General: Swelling and tenderness present. Right lower leg: Edema present. Comments: Patient's right lower extremity is neurovascularly intact there is pain over the gastroc and significant swelling comp ared to the left. There is no evidence of compartment syndrome no pain w ith passive flexion. And he is neurovascularly intact otherwise and has good dorsi plantar flexion no evidence of Achilles injury. Skin: Capillary Refill: Capillary refill takes less than 2 seconds . Neurological: General: No focal deficit present. Mental Status: He is alert and oriented to person, place, an d time. Mental status is at baseline. Diagnostic Testing ED Labs Ordered and Reviewed - No data to display Procedures ED Course / Clinical Impression Clinical Impressions as of 1955 Gastrocnemius tear, right, initial encounter MDM / Disposition / Plan Ultrasound was negative for DVT. He is treated for suspected calf gastroc tear placed in splint and given crutches and given sports me dicine follow-up through their family doctor. Signs and symptoms of compartment syndrome and DVT explained. DispositionThe patient was discharged. SIGNATURE: MD Lemuel Guerra MD 01/19/201958 ed note on ED NOTE HNO ID: [id number] Normal 01-19-2020 [facility] Author: Mony (Rn) ABDIFATAH [facility] ([id number]) Service: Emergency Medicine Author Type: Registered Nurse Type: ED Notes Filed: 01/19/2020 6:51 PM Note Text: Patient transported to [facility] with Tech. ED NOTE HNO ID: [id number] Normal 01-19-2020 [facility] Author: Meme AlbaRn) ABDIFATAH [facility] ([id number]) Service: Emergency Medicine Author Type: Registered Nurse Type: ED Notes Filed: 01/19/2020 6:44 PM Note Text: Pt presents to the emergency department, at bedside, re ports right leg pain. Pt states pain initially started x1 week ago, sign ificantly worse today. Pt denies known injury or trauma. Pain 8/10 sha rp stabbing sensation when walking. cnpn on 2019-12-28 CNPN Telephone (PRINCENA) Normal 12-28-2019 [facility] STEPHEN NAIR ([id number]) 1955 [facility] Date Time Provider Department ([id number]) 12/28/19 [facility] During your visit today, we recorded the following informati on about you: Darlin Gonsalves Data Pss 12/28/2019 10:19 AM Signed Right knee injection about 10 days ago. Injection lasted about 3 days - now pain is back to where it was before the injection Patient would like to know what the next step is. Thien Saravia APRN.RALPH 12/28/2019 4:18 PM Signed I called Stephen. I have placed an order for a MRI to be do ne once insurance approves. Please help to arrange an appointment for Stephen to have this done. Thien Saravia APRN.PAPER SEALER December 28, 2019 4:18 PM Cynthia Arnold 12/28/2019 4:45 PM Signed I spoke with Lupillo, he will call us with the fax number to fax the MRI order to [facility] (not [facility]). Bud Avery 12/28/2019 5:00 PM Signed Patient and his called back. They would like the orde r to be mailed to them in order to have it preformed at [facility]. Order was printed and sent in the mail. Address confirmed. Allergies As of Date: 12/28/2019 (No Known Allergies) Date Reviewed: 12/16/2019 Reviewed by: Elzbieta Dyer CT - Fully Assessed Reason for Visit: patient up date [Other] Primary Visit Diagnosis:Chronic pain of right knee [M25.561, G89.29] Order(s):MRI KNEE WO IVCON RT [[id number]] Order #: [id number] FUTURE Prescriptions as of 12/28/2019 Sig: VERAPAMIL ER (SR) 180 MG TABL* Take 180 mg by mouth daily at * Problem List As Of Date: 12/28/2019 (None) Encounter Status:Closed by CYNTHIA MATA on 12/28/19 xr knee 3v ap/lat/merchant rt on 2019-12-16 XR KNEE 3V * * *Final Report* * * Normal 2019 [facility] AP/LAT/MERCHANT RT DATE OF EXAM: Dec 16 2019 10:20[facility] MDO 5209 - XR KNEE 3V AP/LAT/MERCHANT RT / 5269 (13006) PROCEDURE REASON: M25.561-Right knee pain, unspecified chron icity * * * * Physician Interpretation * * * * PROCEDURE: Right knee INDICATION: Right knee pain, unspecified chronicity . TECHNIQUE: XR KNEE 3V AP/LAT/MERCHANT RT COMPARISON: None FINDINGS: Slight medial joint compartment narrowing. No significant ma rginal spur formation. Upper pole patellar enthesophyte. No fracture or joint effusion. IMPRESSION: Minimal medial joint compartment narrowing sugge sting early osteoarthrosis. Custom Motorcycle Painter: RG Transcribe Date/Time: Dec 16 2019 10:23A Dictated by : COY SMITH MD This examination was interpreted and the report reviewed and electronically signed by: COY SMITH MD on Dec 16 2019 10:23AM EST [id number] progress on 2019-11 PROGRESS HNO ID: [id number] Normal 12-16-2019 [facility] Author: Fay Jacobo [place] ([id number]) Service: ? Author Type: Physician Type: Progress Notes Filed: 01/15/2020 2:56 PM Note Text: CONSULT ORTHOPAEDIC: KNEE PRIMARY CARE PHYSICIAN: Louise Gonzáles DO REFERRING PROVIDER: SELF ASSESSMENT AND PLAN Impression: Bilateral Knee Moderate Degenerative Osteoarthritis, Primary After discussion with Stephen Nair, continued non-operati ve management of injection(s) was chosen. The patient currently has had si x months of unsuccessful non-operative treatment as outlined in the HPI below and progressive symptoms. Progressive Symptoms Include: Pain limiting ability to stay fit and healthy. The patient has been ordered: No orders placed today. CONSULTS: Patient does not require consults for optimization at this t candice. There is no problem list on file for this patient. SUBJECTIVE CHIEF COMPLAINT: Knee Pain HPI: Stephen Nair is a 64 year old patient here for evaluation and management of right knee pain. Stephen Nair has had progr essive problems with the knee(s) constantly over the past 10 year(s ) interfering with activities which include exercise, golfing, rising from a sitting position, getting in and out of a car, climbing stairs and safety-increased risk for fall. The problem began limiting a ctivities 7-12 months ago. Currently the pain in the joint is rated at 3 out of 10 with minimal activity. The pain is constant and is located along the insi de aspect. The pain is described as dull and sharp. Relieving factors inclu de ice and repositioning. The pain appears to be directly related to in jury. Stephen Nair also complains of weakness. FUNCTIONAL STATUS: Participate in strenuous sport, such as s wimming, singles tennis, football, basketball, or skiing (7.50 METs) Preoperative Amb[facility]: [facility] Steps: 1 Bedroom Location: Second floor Bathroom Location: Second floor Caregiver Assistance: Consistent/Live-In (5-7 days/wk) Home Location: [place] PREVIOUS TREATMENTS: Attempted Weight Loss Physical Therapy: Activities Modified and knee sleeve REVIEW OF SYSTEMS: PAIN ASSESSMENT: See HPI. MUSCULOSKELETAL: See HPI. Surgical Risk Factors: None PAST MEDICAL HISTORY Diagnosis Date - Acid reflux - Hypertension PAST SURGICAL HISTORY Procedure Laterality Date - HERNIA REPAIR HX No family history on file. Social History Tobacco Use - Smoking status: Never Smoker - Smokeless tobacco: Never Used Substance Use Topics - Alcohol use: Yes Comment: weekends - Drug use: No ALLERGIES: Patient has no known allergies. MEDICATIONS: verapamil SR (CALAN SR, ISOPTIN SR) 180 mg CR tablet Take 18 0 mg by mouth daily at bedtime. PHYSICAL EXAM: Ht 185.4 cm (6' 1) Wt 103.9 kg (229 lb) BMI 30.21 kg/m? All other systems deferred. GENERAL: Appears healthy, well-nourished, no deformities. HABITUS: Normal GAIT: Normal, the patient did not have trouble getting onto the exam table. KNEE EXAM: Left: Alignment: Varus deformity, Correctable Range of motion is lacking a few degrees secondary to tight hamstrings degrees in extension and 130 degrees of flexion. Extension La degrees Pain with ROM: Yes Effusion: Slight Tender to the palpation of Posterior Knee and Medial femoral condyle Pain with patellar compression: No Stability: Anterior/Posterior stable and Varus/Valgus stable Hip Exam: flexion to 100+ degrees, full extension, internal/external rotation adequate and no pain with log rol l Neurovascular Status: Sensation Intact, Moves foot and ankle up AND down and 2+ dorsalis pedis Right: Alignment: Varus deformity, Correctable Range of motion is 5 degrees in extension and 130 degrees of flexion. Extension La degrees Pain with ROM: Yes Effusion: Moderate Tender to the palpation of Posterior Knee and Medial femoral condyle Pain with patellar compression: No Stability: Anterior/Posterior stable and Varus/Valgus stable Hip Exam: flexion to 100+ degrees, full extension, internal/external rotation adequate and no pain with log rol l Neurovascular Status: Sensation Intact, Moves foot and ankle up AND down and 2+ dorsalis pedis DATA: Diagnostic tests reviewed for today's visit: Right knee X-Ray: Medial joint space noted to have moderate degenerative changes and Lateral joint space noted to have no degenerativ e changes Left knee X-Ray: Medial joint space noted to have moderate d egenerative changes and Lateral joint space noted to have no degenerativ e changes Large Joint Arthro/Inj: R knee joint The risks, benefits and alternatives of the procedure were r eviewed with the patient/surrogate, who agreed to proceed. Time Out: Time Out completed 12/16/2019 11:33 AM The procedure site was prepped in the usual sterile fashion. Allergies were reviewed Site: R knee joint Medications: 12 mg betamethasone acetate-betamethasone sodiu m phosphate 6 mg/mL Anesthetics: 3 mL lidocaine (PF) 10 mg/mL (1 %) Outcome: Tolerated well, no immediate complications Post-injection instructions were reviewed with the patient a nd the patient voiced understanding of these instructions. SIGNATURE: Fay Jacobo MD PATIENT NAME: Stephen gudino DATE: December 16, 2019 TIME: 10:58 AM PROGRESS HNO ID: [id number] Normal 12-16-2019 [facility] Author: JACK Rutledge (Ct) ([id number]) Service: ? Author Type: Clinical Radiation Therapy Technician Type: Progress Notes Filed: 12/16/2019 10:21 AM Note Text: NAME:Stephen Nair DATE: December 16, 2019 [facility]#: [id number] Lower Extremity X-Ray(s): Knee, AP / Lat / Merchant Right an d Wt. Bearing COMPLETED TECH ID SIGN: LAN [place] cnov on 2019-12-16 CNOV Office Visit (ORMDNA) Normal 12-16-19 [facility] STEPHEN NAIR ([id number]) 1955 [place] Time Provider Department ([id number]) 12/16/19 10:20 AM FAY JACOBO During your visit today, we recorded the following informati on about you: Weight Height 103.9 kg 1.854 m Fay Jacobo MD 01/15/2020 2:56 PM Signed CONSULT ORTHOPAEDIC: KNEE PRIMARY CARE PHYSICIAN: Louise Gonzáles DO REFERRING PROVIDER: SELF ASSESSMENT AND PLAN Impression: Bilateral Knee Moderate Degenerative Osteoarthritis, Primary After discussion with Stepehn Nair, continued non-o perative management of injection(s) was chosen. The patient currently has had six m onths of unsuccessful non-operative treatment as outlined in the HPI below and progressive symptoms. Progressive Symptoms Include: Pain limiting ability to stay fit and healthy. The patient has been ordered: No orders placed today. CONSULTS: Patient does not require consults for optimization at this t [facility]. There is no problem list on file for this patient. SUBJECTIVE CHIEF COMPLAINT: Knee Pain HPI: Stephen Nair is a 64 year old patient here for evaluation and management of right knee pain. Stephen Nair has had progressive problems with the knee(s) constantly over the past 10 year(s) interfering with activities which include exercise, golfing, rising fr om a sitting position, getting in and out of a car, climbing stairs and safety-increased ris k for fall. The problem began limiting activities 7-12 months ago. Currently the pain in the joint is rated at 3 out of 10 with minimal activity. The pain is constant and is located along the inside aspect. The pain is described as dull and sharp. Relieving factors i nclude ice and repositioning. The pain appears to be directly related to injury. Stephen Nair also complains of weakness. FUNCTIONAL STATUS: Participate in strenuous sport, suc h as swimming, singles tennis, football, basketball, or skiing (7.50 METs) Preoperative Ambulatory Status: Independent [facility] frank[facility] Number of Entry Steps: 1 Bedroom Location: Second floor Bathroom Location: Second floor Caregiver Assistance: Consistent/Live-In (5-7 days/wk) Home Location: [place] 150 [place] PREVIOUS TREATMENTS: Attempted Weight Loss Physical Therapy: Activities Modified and knee sleeve REVIEW OF SYSTEMS: PAIN ASSESSMENT: See HPI. MUSCULOSKELETAL: See HPI. Surgical Risk Factors: None PAST MEDICAL HISTORY Diagnosis Date - Acid reflux - Hypertension PAST SURGICAL HISTORY Procedure Laterality Date - HERNIA REPAIR HX No family history on file. Social History Tobacco Use - Smoking status: Never Smoker - Smokeless tobacco: Never Used Substance Use Topics - Alcohol use: Yes Comment: weekends - Drug use: No ALLERGIES: Patient has no known allergies. MEDICATIONS: verapamil SR (CALAN SR, ISOP TIN SR) 180 mg CR tablet Take 180 mg by mouth daily at bedtime. PHYSICAL EXAM: Ht 185.4 cm (6' 1) Wt 103.9 kg (229 lb) BMI 30.21 kg/m? All other systems deferred. GENERAL: Appears healthy, well-nourished, no deformities. HABITUS: Normal GAIT: Normal, the patient did not have trouble getting ont o the exam table. KNEE EXAM: Left: Alignment: Varus deformity, Correctable Range of motion is lacking a few degrees secondary to tight hamstrings degrees in extension and 130 degrees of flexion. Extension La degrees Pain with ROM: Yes Effusion: Slight Tender to the palpation of Posterior Knee and Medial femoral condyle Pain with patellar compression: No Stability: Anterior/Posterior stable and Varus/Valgus stable Hip Exam: flexion to 100+ degrees, full extension, internal/external rotation adequate and no pain with log rol l Neurovascular Status: Sensation Intact, Moves foot and ankle up AND down and 2+ dorsalis pedis Right: Alignment: Varus deformity, Correctable Range of motion is 5 degrees in extension and 130 degrees of flexion. Extension La degrees Pain with ROM: Yes Effusion: Moderate Tender to the palpation of Posterior Knee and Medial femoral condyle Pain with patellar compression: No Stability: Anterior/Posterior stable and Varus/Valgus stable Hip Exam: flexion to 100+ degrees, full extension, internal/external rotation adequate and no pain with log rol l Neurovascular Status: Sensation Intact, Moves foot and ankle up AND down and 2+ dorsalis pedis DATA: Diagnostic tests reviewed for today's visit: Right knee X-Ray: Medial joint space noted to have moderate degenerative changes and Lateral joint space noted to have no degenerativ e changes Left knee X-Ray: Medial join t space noted to have moderate degenerative changes and Lateral joint space noted to have no degenerative change s Large Joint Arthro/Inj: R knee joint The risks, benefits and alternatives of the procedure were reviewed with the patient/surrogate, who agreed to proceed. Time Out: Time Out completed 12/16/2019 11:33 AM The procedure site was prepped in the usual sterile fashion. Allergies were reviewed Site: R knee joint Medications: 12 mg betametha sone acetate-betamethasone sodium phosphate 6 mg/mL Anesthetics: 3 mL lidocaine (PF) 10 mg/mL (1 %) Outcome: Tolerated well, no immediate complications Post-injection instructions were reviewed with the patient a nd the patient voiced understanding of these instructions. SIGNATURE: Fay Jacobo MD PATIENT NAME: Stephen gudino DATE: December 16, 2019 TIME: 10:58 AM Referring Provider: SELF [[id number]] Allergies As of Date: 12/16/2019 (No Known Allergies) Date Reviewed: 12/16/2019 Reviewed by: Elzbieta Dyer CT - Fully Assessed Reason for Visit: Knee Pain [132] New [[id number]] Primary Visit Diagnosis:Primary osteoarthritis of right knee [M17.11] Other Visit Diagnosis:Primary osteoarthritis of left knee [M 17.12] Order(s):Large Joint Arthro/Inj: R knee joint [DZN247] Order #: [id number] betamethasone acetate-betamethasone sodium phosphate 12 mg i njection (CELESTONE)Disp: Rfl: lidocaine (PF) 10 mg/mL (1 %) 3 mL injection (XYLOCAINE)Disp : Rfl: Prescriptions as of 12/16/2019 Sig: VERAPAMIL ER (SR) 180 MG TABL* Take 180 mg by mouth daily at * Problem List As Of Date: 12/16/2019 (None) Prescriptions ordered this encounter Disp Refills Start End BETAMETHASONE ACETATE AND SODIUM NENITA* 12/16/2019 Route: Inj-ORTHO LIDOCAINE (PF) 10 MG/ML (1 %) INJECT* 12/16/2019 Route: Inj-ORTHO Encounter Status:Closed by FAY JACOBO MD on 01/15/20 No panel information on 2019-11-02 Negative 11-02-2019 [facility] ([id number]) ct cardiac scoring on 2017-11-06 CT CARDIAC Name: Edmundo NAIR raffi 11-06-2017 Hillary LUCY STEPHEN STUDY:CT CARDIAC SCORING; [facility] 11/06/2017 8:12 am ( [id number]) INDICATION:Signs/Symptoms: Coronary artery calcium scoring. COMPARISON:None ORDERING CLINICIAN:LOUISE ELIAS TECHNIQUE:Using prospective ECG gating, CT scan of the coronary arteries wasperformed without intravenous contrast. Coronary calcium scoring wasperformed according to the method of Agatston. FINDINGS:FINDINGS:Thin section, gated noncontrast axial images were obtained throughthe heart. Total coronary artery calcium score was 43.74. This fallswithin the Definite but mild plaque category of 11 to 100. Riskfactor modification is recommended, including daily aspirinprophylaxis and strict adherence to National cholesterol EducationProgram (NCEP) guidelines. Clinical follow up is necessary. The calcium score of the individual coronary arteries is as follows: LM 0LAD 41.75LCx 1.87RCA 0.12 Visualized portions of the lungs are clear on the dedicated lungwindows. Heart is normal in size. There is no pericardial effusion.Unenhanced limited visualized portions of the thoracic esophagus andupper abdomen are grossly unremarkable. Multilevel discogenicdegenerative changes of the visualized lower thoracic spine arepresent. IMPRESSION:1. Total coronary artery calcium score of 43.74 falls within theDefinite but mild plaque category. Coronary artery calcium scoring may be helpful in predicting the riskfor future coronary heart disease events. According to the AmericanCollege of Cardiology Foundation Clinical Expert Consensus TaskForce, such testing provides important prognostic information inpatients with more than one coronary heart disease risk factor. Thecoronary artery calcium score correlates with the annual risk of anon-fatal myocardial infarction or coronary heart disease . Coronary artery score Annual Risk 0-99 0.4% 100-399 1.3% >400 2.4% These three break-points correspond to lower, intermediate and highrisk states for future coronary events. Such information should beused, along with appropriate clinical judgment, to make decisionsregarding the intensity of risk factor management strategies to treatblood lipids and to modify other non-lipid coronary risk factors. Reference: [place] P. et al. Circulation. 2007; 115:402-426.Electronically signed by: GHANSHYAM SPEARS MD Vital Signs Vital Sign Description Value / Unit Date Location The following section is limited to 5 en tries per type and includes entries from the following time range: 20191102 - 20191017 7. BMI (Body Mass Index) 31.47 kg/m2 11-02-2019 [facility] ([id number]) Body Temperature 98.6 [degF] 11-02-2019 [facility] ([id number]) Body weight 105.26 kg 11-02-2019 [facility] ([id number]) BP Diastolic 78 mm[Hg] 11-02-2019 [facility] ([id number]) BP Systolic 148 mm[Hg] 11-02-2019 [facility] ([id number]) BSA (Body Surface Area) 2.27 m2 11-02-2019 [facility] ([id number]) Pulse (Heart Rate) 63 /min 11-02-2019 [facility] ([id number]) Pulse Oximetry 98 % 11-02-2019 [facility] ([id number]) Respiratory Rate 14 /min 11-02-2019 [facility] ([id number]) Encounters Date Type Reason Provider Location 11-06-2017 Ambulatory Encounter for Louise Coon Facility: [id number] screening, Nosálvaro Gil unspecified Shellnataly Gonzáles 08-09-2020 Patient encounter Disease [facility] ([phone]) 06-28-2020 Patient encounter Disease [facility] ([phone]) 06-05-2020 Patient encounter Disease [facility] ([phone]) 02-02-2020 Patient encounter Disease [facility] ([phone]) 11-02-2019 Patient encounter Disease [facility] ([phone]) 05-04-2019 Patient encounter Disease [facility] ([phone]) 11-24-2018 Patient encounter Disease [facility] ([phone]) 10-29-2018 Patient encounter Disease [facility] ([phone]) 07-17-2018 Patient encounter Disease [facility] ([phone]) 04-28-2018 Patient encounter Disease [facility] ([phone]) 12-19-2017 Patient encounter Disease [facility] ([phone]) Procedures Procedure Name Date Provider Location CBC W Auto Differential panel - 08-09-2020 [facility] Blood ([id number]) Comprehensive metabolic 2000 panel 08-09-2020 [facility] ([id number]) Lipid panel 08-09-2020 [facility] ([id number]) PSA screening 08-09-2020 [facility] ([id number]) Follow-up visit 02-02-2020 [facility] (0 0000) CBC W Auto Differential panel - 11-02-2019 [facility] Blood ([id number]) Comprehensive metabolic 2000 panel 11-02-2019 [facility] ([id number]) Immunoassay analyte qual/semiqual 11-02-2019 [facility] multiple step ([id number]) Follow-up visit 11-02-2019 [facility] (0 0000) Follow-up visit 05-04-2019 [facility] (0 0000) Hernia repair [facility] ([id number]) [facility][id number][facility] Screening colonoscopy [facility] ([id number]) Immunizations Vaccine Notes Status Date Location DTP diphtheria, tetanus (completed) 12-11-2009 - [facility] toxoids and pertussis 12-11-2009 [facility] ([id number]) vaccine Havrix 1440 EL U/ML hepatitis A vaccine, (completed) [facility]-02-2019 [facility] ([id number] [phone]) Suspension Fluzone Quadrivalent influenza, (completed) 11-02-2019 - [facility] 0.5 ML Intramuscular injectable, 11-02-2019 [facility] ([id number]) Suspension quadrivalent, preservative free Fluarix Quadrivalent influenza, (completed) 09-29-2018 - [facility] 0.5 ML Intramuscular injectable, 09-29-2018 [facility] ([id number]) Suspension Prefilled quadrivalent, Syringe preservative free Fluzone Quadrivalent influenza, (completed) 09-04-2017 - [facility] 0.5 ML Intramuscular injectable, 09-04-2017 [facility] ([id number]) Suspension quadrivalent, preservative free Influenza influenza, seasonal, (completed) 07-08-2014 - [facility] injectable 07-08-2014 [facility] ([phone]) Influenza influenza, seasonal, (completed) 12-15-2012 - [facility] injectable 12-15-2012 [facility] ([phone]) Tdap (Boostrix) tetanus toxoid, (completed) 03-17-2018 - [facility] Granger reduced diphtheria 03-17-2018 [facility] ([id number]) toxoid, and acellular pertussis vaccine, adsorbed Tdap tetanus toxoid, (completed) 12-11-2009 - REALouise scott reduced diphtheria 12-11-2009 [facility] ([id number]) toxoid, and acellular pertussis vaccine, adsorbed Shingrix 50 MCG zoster vaccine (completed) 05-04-2019 - [facility] Intramuscular recombinant 05-04-2019 [facility] ([id number] [phone]) Suspension Reconstituted Shingrix 50 MCG zoster vaccine (completed) 04-28-2018 - [facility] Intramuscular recombinant 04-28-2018 [facility] ([phone]) Suspension Reconstituted Payers Payer Name Policy Number Location Institutional Billing [id number] [facility] enter ([id number]) The following information is from the original human readable contentNo Payer Records FoundNo Payer Records FoundNo Payer Records FoundNo Payer Records FoundNo Payer Records FoundNo Payer Records FoundNo Payer Records FoundNo Payer Records FoundNo Payer Records FoundNo Payer Records FoundNo Payer Records Found Social History Type Social History Description Date Locat ion NEGATED: Highlighted row - [facility] ([id number]) The following information is from the original human readable contentNo Social History Records FoundNo Social History Records FoundNo Social History Records FoundNo Social History Records FoundNo Social History Records FoundNo Social History Records FoundNo Social History Records FoundNo Social History Records FoundNo Social History Records FoundNo Social History Records FoundNo Social History Records FoundNo Social History Records FoundNo Social History Records Found Functional Status Status Assessment Result Location NEGATED: Highlighted Functional status health [facility] rowFunctional performance issues are not documented (10553) Mental Status Status Assessment Result Location NEGATED: Highlighted Cognitive status health [facility] rowCognitive function issues are not documented (47584) [Interpretation] Summary Purpose Family History No Family History Records Found Mother Name Dates Details No pertinent family history (V49.89, Z78.9) Status: Active Father Name Dates Details Family history of myocardial infarction (V17.3, Z82.49) Status: Active Family history of cardiac disorder (V17.49, Z82.49) Status: Active Family history of Cath Stent Placement S tatus: Active Family history of CABG Status: Active Mother Name Dates Details No pertinent family history (V49.89, Z78.9) Status: Active Father Name Dates Details Family history of cardiac disorder (V17.49, Z82.49) Status: Active Family history of Cath Stent Placement S tatus: Active Family history of CABG Status: Active Family history of myocardial infarction (V17.3, Z82.49) Status: Active Mother Name Dates Details No pertinent family history (V49.89, Z78.9) Status: Active Father Name Dates Details Family history of cardiac disorder (V17.49, Z82.49) Status: Active Family history of Cath Stent Placement S tatus: Active Family history of CABG Status: Active Family history of myocardial infarction (V17.3, Z82.49) Status: Active Family history of coronary artery disease (V17.3, Z82.49) Status: Active Advance Directives No Advanced Directives Records FoundNo Advanced Directives Records FoundNo Advanced Directives Records FoundNo Advanced Directives Records FoundNo Advanced Directives Records FoundNo Advanced Directives Records FoundNo Advanced Directives Records Found Additional Source Comments FOR RECORDS PERTAINING TO PATIENTS WHO ARE OR HAVE BEEN ENROLLED IN A CHEMICAL DEPENDENCY/SUBSTANCE ABUSE PROGRAM, SOME INFORMATION MAY BE OMITTED. This clinical summary was aggregated from multiple sources. Caution should be exercised in using it in the provision of clinical care. This summary normalizes information from multiple sources, and as a consequence, information in this document may materially changethe coding, format and clinical context of patient data. In addition, data may be omittedin some cases. CLINICAL DECISIONS SHOULD BE BASED ON THE PRIMARY CLINICAL RECORDS. [facility] provides no warranty or guarantee of the accuracy or completeness of information in this document. UNRECOGNIZED CONTENT PROVIDED BELOW FOR UNRECOGNIZED SECTION No Status Records FoundNo Status Records FoundNo Status Records FoundNo Status Records FoundNo Status Records FoundNo Status Records FoundNo Status Records Found UNRECOGNIZED CONTENT PROVIDED BELOW FOR UNRECOGNIZED SECTION INFORMATION SOURCE DATE CREATED AUTHOR AUTHOR'S ORGANIZATIO N 2018 [facility] DATE CREATED AUTHOR AUTHOR'S ORGANIZATIO N 12/16/2019 [facility] DATE CREATED AUTHOR AUTHOR'S ORGANIZATIO N 01/15/2020 [facility] DATE CREATED AUTHOR AUTHOR'S ORGANIZATIO N 01/20/2020 [facility] DATE CREATED AUTHOR AUTHOR'S ORGANIZATIO N 01/25/2020 [facility] DATE CREATED AUTHOR AUTHOR'S ORGANIZATIO N 02/02/2020 [facility] CREATED AUTHOR AUTHOR'S ORGANIZATIO N 08/09/2020 [facility]
== END 2020-04-03 14:24 | disposition home or self-care (01) ==
LOC: SDC 10:28 → AC 10:28
PROVIDERS: Physician Assistant; PCP Family Medicine; Referring Provider Orthopaedic Surgery; Visit Provider Orthopaedic Surgery
PROC: (CPT 29870; principal; 2020-04-03 11:25)
DX: S83.281A Other tear of lateral meniscus, current injury, right knee, initial encounter (principal); S83.241A Other tear of medial meniscus, current injury, right knee, initial encounter; I10 Essential (primary) hypertension; K44.9 Diaphragmatic hernia without obstruction or gangrene; M19.90 Unspecified osteoarthritis, unspecified site; X58.XXXA Exposure to other specified factors, initial encounter; Y93.89 Activity, other specified; Y92.9 Unspecified place or not applicable; Z11.59 Encounter for screening for other viral diseases; Z79.899 Other long term (current) drug therapy; Z87.891 Personal history of nicotine dependence
CPT/HCPCS: 01400; 29880; 36415; 80048; 85027; 87635; 93005; G2023; J7120; J2405; U0002

== ENCOUNTER 2021-10-09 06:01 | Day surgery (SDC) | payer OTHER, SELFPAY ==
[2021-10-09] VITALS (14 sets, daily range): BP systolic 100–150; BP diastolic 66–122; PULSE 59–73; RESP 10–16; TEMP 36–36.1; O2SAT 92–100; BMI 32.5
--- NOTE | 2021-10-09 | COLBX_PTH ---
PATIENT: COREY LYLE LOC: EN U#:[id number] AGE/SX: 66/M ROOM: RE10/09/[address]: Dr. Bobby Lewis MD : 1955 BED: DIS: 10/09/2021 SPEC #: [id number] RECD: 10/09/21 09:55 STATUS: KULDIP MARTINEZ #: [id number] PATRICIA: 10/09/21 00:[address]: Bobby Lewis DEPT: SURGICAL PATHOLOGY RECD BY: Saw Bettencourt ENTERED: 10/09/21 09:56 SP TYPE: COLON BX OT DR: Dr. Louise Arreola, DO Tissues: A - Cecum, NOS B - COLON BIOPSY Procedures: Surgery Specimen Level IV HEADER OPERATION: Colonoscopy PRE-OP DIAGNOSIS: Diarrhea TISSUE SUBMITTED: A ? Cecal polyp, B ? Random colon biopsy MICROSCOPIC DIAGNOSIS A. Cecal polyp, biopsy: Hyperplastic polyp. B. Colon, random biopsy: Fragments of colonic mucosa, no pathologic diagnosis. ENOC 10/10/21 MICROSCOPIC DESCRIPTION Slides are reviewed. GROSS DESCRIPTION A. Received in fixative is one container labeled with the patient's name and designated cecal polyp. The specimen consists of multiple irregular fragments of light salas soft tissue that in aggregate measure 1 x 0.3 x 0.1 cm. The specimen is totally submitted in one cassette. B - Received in fixative is one container labeled with the patient's name and designated random colon biopsy. The specimen consists of multiple irregular fragments of light salas soft tissue that in aggregate measure 1.5 x 0.6 x 0.1 cm. The specimen is totally submitted in one cassette. / SJ:rg 10/09/2021 TC:1 CPT: 05624 x2
--- NOTE | 2021-10-09 06:19 | HP.PCM_ITS ---
History and Physical Date of Admission: 10/09/21 Intake Visit Reasons: Diarrhea Chief Complaint: diarrhea/ hx colon polyps Professor Of Violin Required: No Is patient in pain?: No Allergies No Known Allergies Allergy (Verified 09/20/21 08:59) Medications verapamil 180 mg PO DAILY 07/02/17 [History Confirmed 09/20/21] aspirin 81 mg tablet,delayed release 81 mg PO DAILY 09/20/21 [History Confirmed 09/20/21] gabapentin 100 mg capsule ea PO 09/20/21 [History Confirmed 09/20/21] omega-3 fatty acids 1,000 mg capsule 1,000 mg PO DAILY 09/20/21 [History Confirmed 09/20/21] [facility] Medical History (Updated 09/20/21 @ 09:[address] Bobby Lewis MD) Epigastric pain Hiatal hernia History of colon polyps History of diverticulitis HTN (hypertension) Hyperlipidemia Right inguinal hernia Surgical History History of cataract extraction History of colonoscopy (~2015) History of esophagogastroduodenoscopy (EGD) (~2019) History of left inguinal hernia repair S/P inguinal hernia repair Family History (Updated 09/20/21 @ 08:58 by Lynette Titus) Father Heart disease Hypertension Congestive heart failure Social History Smoking Status: Former smoker alcohol intake: current alcohol intake frequency: a few times a month HPI HPI HPI: COREY LYLE, is a 66 M who presents to the office today for surgical consultation regarding an episode of diarrhea. On September 08, 2021 at [facility] the patient had a CT scan performed showing fluid-filled loops of small bowel and colon suggestive diarrheal illness. Mild wall thickening of the distal and terminal ileum compatible with mild nonspecific enteritis. Likely infectious or inflammatory. Additionally there is felt to be segmental regions of mild colonic wall thickening particularly at the hepatic flexure and mid to distal transverse colon and mid descending colon. There is no significant pericolonic stranding. There were multiple prominent mesenteric lymph nodes but no significant retroperitoneal or pelvic adenopathy. There is no ascites. There is evidence of a previous left inguinal herniorrhaphy. Because of epigastric abdominal pain on November 23, 2019 I assisted him with a esophagogastroduodenoscopy. Reflux esophagitis and a medium size hiatal hernia with chronic gastritis and duodenitis was identified. At that time he stated that he had had 4 previous colonoscopy and previous colon polyps. His most recent colonoscopy was approximately 2017 and was recommended that he have a follow-up at 5 years. States that he has had several episodes of diverticulitis and he preemptively has a prescription for ciprofloxacin and metronidazole. CT imaging apparently also suggests a known hiatal hernia and a known small right inguinal hernia The patient claims that the day before he had eaten out with a salad. He then developed 1 day after temperature up to 102.8. Severe diarrhea. He was ill for 3 days. He states that his symptoms have abated. He feels well currently. He states that he has had 3 previous colonoscopies and is due because of a personal history of colon polyps as well. He denies any family history of Crohn's disease or ulcerative colitis or colon cancer. He does take aspirin and fish oil. ROS General General: No weight change, appetite, fatigue, colon cancer, breast cancer or weakness HEENT HEENT: Yes eye injury; No difficulty swallowing, eye surgery, swollen glands or hoarseness Endo Endocrine: No thyroid disease, diabetes mellitus, thyroid cancer, Hair loss, heat intolerance or cold intolerance Musc Musculoskeletal: Yes back problems; No arthritis, rheumatoid arthritis, gout or joint pain Cardio Cardiovascular: Yes high blood pressure; No murmur, pacemaker, heart disease, atrial fibrillation, heart attack, heart stent, palpitations, shortness of breat with exertion or chest pain Psych Psychiatric: No depression, anxiety or hearing voices Resp Respiratory: No shortness of breath, No sleep apnea, No cough, No COPD, No asthma, No emphysema and No wheezing Gastro Gastrointestinal: No abdominal pain, No nausea or vomiting, No diarrhea, No constipation, No blood in stool, No acid reflux, No hemorrhoids, No ulcers, No gallbladder problem and No black,tarry stools Shayne Hematologic: No blood thinners, No blood disorders, No bleeding, No anemia and No blood clots Neuro Neurologic: No weakness Exam Const General: cooperative, healthy appearing, comfortable and no acute distress Nutritional Appearance: overweight Orientation: alert and awake [facility] Head: normal to inspection Eyes General: appearance normal, both eyes and all related structures Neck Neck: normal visual inspection Resp Effort & Inspection: normal respiratory effort Auscultation: clear to auscultation bilaterally Cardio Rate: regular rate Rhythm: regular rhythm GI Palpation: soft and no hepatosplenomegaly Auscultation: normal bowel sounds Skin General: no rashes or lesions noted Neuro General: patient alert and patient awake Extrem General: no calf tenderness Psych Appearance: grossly normal Assessment and Plan Assessment and Plan (1) Diarrhea: Qualifiers: Diarrhea type: unspecified type Qualified Code(s): R19.7 - Diarrhea, unspecified Plan - Dr. Bobby Lewis MD: I recommended the patient a colonoscopy possible biopsy or polypectomy as indicated. He is aware of the technique, benefit, risk, alternatives. He has had an opportunity to ask and have questions answered. I will attempt to intubate the ileum at that time. Fortunately his symptoms have abated. His episode sounds like a foodborne illness. Careful inspection will be pursued however particular in light of the CT findings as well. I appreciate the opportunity of assisting with surgical care Copy:DO Bobby Richey M.D., F.A.C.S. I have re-examined the patient. There are no clinical changes since date of exam. Bobby Lewis M.D., F.A.C.S.
[2021-10-09] MEDS: Lactated Ringers 1,000 ML 100 ML IV (06:31)
[2021-10-09] MEDS: Midazolam 5 MG/ML Syringe (07:27)
--- NOTE | 2021-10-09 07:33 | OP.CCLET_ITS ---
10/09/2021 Louise Babcock Do Re : Colonoscopy procedure for Stephen Nair Audrey Babcock This procedure was performed on Saturday, October 09, 2021. My impressions and recommendations are as follows: Impressions : - Non-thrombosed external hemorrhoids, non-thrombosed internal hemorrhoids, internal hemorrhoids that prolapse with straining, but spontaneously regress to the resting position (Grade II) and enlarged prostate found on digital rectal exam. - One 6 mm polyp in the cecum, removed with a cold biopsy forceps. Resected and retrieved. - Diverticulosis in the sigmoid colon. - The examination was otherwise normal. - Biopsies were taken with a cold forceps from the entire colon for evaluation of microscopic colitis. Recommendations : - Discharge patient to home. - Resume previous diet. - Continue present medications. - Repeat colonoscopy in 5 years for surveillance based on pathology results. - Telephone my office for pathology results in 1 week. My findings are described in the full procedure note, which is enclosed. If I can be of further assistance, please feel free to contact me at Doctor phone number(s): Work: . Sincerely, Bobby Lewis MD 10/09/2021 7:32:45 AM This report has been signed electronically.
--- NOTE | 2021-10-09 07:33 | OP.COLON_ITS ---
Patient Name: Stephen Nair Procedure Date: 10/09/2021 6:58 AM Date of : 1955 Age: 66 Procedure: Colonoscopy Indications: Clinically significant diarrhea of unexplained origin Providers: Bobby Lewis MD Medicines: Midazolam 4.5 mg IV, Meperidine 150 mg IV Patient Profile: Last Colonoscopy: 2016. Complications: No immediate complications. Procedure: Pre-Anesthesia Assessment: - Prior to the procedure, a History and Physical was performed, and patient medications and allergies were reviewed. The patient's tolerance of previous anesthesia was also reviewed. The risks and benefits of the procedure and the sedation options and risks were discussed with the patient. All questions were answered, and informed consent was obtained. Prior Anticoagulants: The patient has taken no previous anticoagulant or antiplatelet agents. ASA Grade Assessment: II - A patient with mild systemic disease. After reviewing the risks and benefits, the patient was deemed in satisfactory condition to undergo the procedure. After I obtained informed consent, the scope was passed under direct vision. Throughout the procedure, the patient's blood pressure, pulse, and oxygen saturations were monitored continuously. The adult colonoscope was introduced through the anus and advanced to the cecum, identified by appendiceal orifice and ileocecal valve. The colonoscopy was performed without difficulty. The patient tolerated the procedure well. Moderate Sedation: Moderate (conscious) sedation was personally administered by the endoscopist. The following parameters were monitored: oxygen saturation, heart rate, blood pressure, and response to care. Total physician intraservice time was 15 minutes. Scope In: 7:08:01 AM Scope Withdrawal Time 0 hours 12 minutes 28 seconds Scope Out: 7:26:58 AM Total Procedure Duration Time 0 hours 18 minutes 57 seconds Findings: The digital rectal exam findings include non-thrombosed external hemorrhoids, non-thrombosed internal hemorrhoids, internal hemorrhoids that prolapse with straining, but spontaneously regress to the resting position (Grade II) and enlarged prostate. A 6 mm polyp was found in the cecum. The polyp was sessile. The polyp was removed with a cold biopsy forceps. Resection and retrieval were complete. Multiple diverticula were found in the sigmoid colon. The exam was otherwise without abnormality. Biopsies for histology were taken with a cold forceps from the entire colon for evaluation of microscopic colitis. Impression: - Non-thrombosed external hemorrhoids, non-thrombosed internal hemorrhoids, internal hemorrhoids that prolapse with straining, but spontaneously regress to the resting position (Grade II) and enlarged prostate found on digital rectal exam. - One 6 mm polyp in the cecum, removed with a cold biopsy forceps. Resected and retrieved. - Diverticulosis in the sigmoid colon. - The examination was otherwise normal. - Biopsies were taken with a cold forceps from the entire colon for evaluation of microscopic colitis. Recommendation: - Discharge patient to home. - Resume previous diet. - Continue present medications. - Repeat colonoscopy in 5 years for surveillance based on pathology results. - Telephone my office for pathology results in 1 week. Procedure Code(s): --- Professional --- 17839, Colonoscopy, flexible; with biopsy, single or multiple 11778, 59, Moderate sedation services provided by the same physician or other qualified health health care law specialist performing the diagnostic or therapeutic service that the sedation supports, requiring the presence of an independent trained observer to assist in the monitoring of the patient's level of consciousness and physiological status; initial 15 minutes of intraservice time, patient age 5 years or older Diagnosis Code(s): --- Professional --- D12.0, Benign neoplasm of cecum K64.1, Second degree hemorrhoids K64.4, Residual hemorrhoidal skin tags R19.7, Diarrhea, unspecified N40.0, Benign prostatic hyperplasia without lower urinary tract symptoms K57.30, Diverticulosis of large intestine without perforation or abscess without bleeding CPT copyright 2017 [employer]. All rights reserved. The codes documented in this report are preliminary and upon fluorescent lamp replacer review may be revised to meet current compliance requirements. Bobby Lewis MD 10/09/2021 7:32:45 AM This report has been signed electronically. Number of Addenda: 0 Note Initiated On: 10/09/2021 6:58 AM
== END 2021-10-09 08:36 ==
LOC: EN 06:02 → AC 06:02
PROVIDERS: PCP Family Medicine; Referring Provider Family Medicine; Visit Provider Surgery
PROC: 0DJD8ZZ Inspection of Lower Intestinal Tract, Via Natural or Artificial Opening Endoscopic (ICD-10-PCS; CPT 45378; principal; 2021-10-09 06:55)
DX: K63.5 Polyp of colon (principal); K57.30 Diverticulosis of large intestine without perforation or abscess without bleeding; K64.1 Second degree hemorrhoids; K64.4 Residual hemorrhoidal skin tags; K52.9 Noninfective gastroenteritis and colitis, unspecified; K44.9 Diaphragmatic hernia without obstruction or gangrene; I10 Essential (primary) hypertension; Z87.19 Personal history of other diseases of the digestive system; Z87.891 Personal history of nicotine dependence; Z79.899 Other long term (current) drug therapy; Z79.82 Long term (current) use of aspirin
CPT/HCPCS: 45380; 88305; 99152; 99153; J7120

== ENCOUNTER → 2021-11-03 07:29 | Outpatient (CLI) | payer OTHER, SELFPAY ==
--- NOTE | 2021-11-03 07:42 | MRI_ITS ---
HISTORY: PAIN. TECHNIQUE: Multiplanar and multisequence MR images of the lumbar spine. IV Contrast dosage and agent: None. # of images incl. paperwork: 155. COMPARISON: CT 07/02/2017. FINDINGS: VERTEBRAE: Transitional lumbosacral anatomy of L5 with a rudimentary disc of L5-S1. Vertebral body heights maintained. Degenerative bone marrow endplate changes at multiple levels. ALIGNMENT: Unchanged 2-3 mm retrolisthesis of L2-3 and L3-4. Minimal levoscoliosis again seen. CONUS: Normal morphology and position at T12. SOFT TISSUES: No paraspinal fluid collections. Colonic diverticulosis present. INTERVERTEBRAL DISCS: Multilevel degenerative changes with posterior disc bulge osteophyte complexes and facet arthropathy. T12-L1: No significant central canal stenosis or foraminal narrowing. L1-2: Minimal narrowing of the thecal sac. Mild bilateral foraminal narrowing. L2-3:Mild central canal stenosis. Mild left and moderate right foraminal narrowing with abutment of the right L2 nerve root. L3-4: Mild central canal stenosis with abutment and probable impingement of the right L4 nerve root. Mild left and moderate right foraminal narrowing. L4-5: Minimal narrowing of the thecal sac. Mild-moderate bilateral foraminal narrowing. L5-S1: Rudimentary disc without significant posterior disc herniation, central canal stenosis, or foraminal narrowing. MRI/Spine Lumbar (Routine) IMPRESSION: Multilevel degenerative disc disease as described above. at 0908 Reported and signed by: Honey Funes MD Electronically Signed: Honey Funes MD at 9:07 EST Tel , Service support ,
== END ==
PROVIDERS: PCP Family Medicine
DX: M48.061 Spinal stenosis, lumbar region without neurogenic claudication (principal); M54.16 Radiculopathy, lumbar region
CPT/HCPCS: 72148

== ENCOUNTER → 2022-11-06 | Outpatient (CLI) | payer SELFPAY ==
--- NOTE | 2022-11-06 12:29 | CT_ITS ---
INDICATION: Encounter for screening for cardiovascular disorders EXAMINATION: CT CHEST WITHOUT CONTRAST - CT Chest W/O Contrast Injection TECHNIQUE: Helically acquired images were obtained of the chest. A radiation dose optimization technique was used for this scan. IV Contrast dosage and agent: None. COMPARISON: None. FINDINGS: Small benign-appearing bilateral axillary lymph nodes. LUNGS, PLEURA AND LARGE AIRWAYS: No masses, consolidation, or edema. No pleural effusion or thickening. No pneumothorax. THYROID: No thyroid lesions. HEART AND PERICARDIUM: Heart size is normal. No pericardial effusion. CORONARY ARTERIES: Coronary artery calcification is seen. VESSELS: Thoracic aorta is not dilated. MEDIASTINUM AND MABLE: No mediastinal or hilar adenopathy. Esophagus is unremarkable. No hiatal hernia. UPPER ABDOMEN: Small hiatal hernia. BONES: Mild degree of degenerative changes of the thoracic vertebrae. CT/Limited Chest CT Cardiac Only IMPRESSION: Coronary artery calcification. Electronically Signed: Phi Sutton MD at 14:36 EST ,
[2022-11-06 12:35] VITALS: BP 160/86; PULSE 64; RESP 16; TEMP 36.4; O2SAT 98; BMI 30.9
--- NOTE | 2022-11-24 14:52 | CA.SCORE ---
Calcium Scoring Date of Study:: 11/06/22 Indications Indications: Chest pain Coronary Calcium Scoring: High-resolution Computed Tomographic imaging of the chest was performed on [November 06, 2022], with particular attention paid to the coronary arteries. Images from the examination were analyzed for the presence and extent of coronary artery calcification , using coronary calcium quantification software. The patient tolerated the procedure well and there were no complications. The results of the coronary calcification analysis are provided below. Findings Coronary Artery Left Main (LM): 90.6 Left Anterior Descending (LAD): 2 Left Circumflex (LCX): 13 Right Coronary Artery (RCA): 0 Total Agatston Score: 105.6 Percentile Rankin% to 50 percent Calcium Scoring Interpretation: 0 No identifiable atherosclerotic plaque. Very low cardiovascular disease risk. <5% chance of presence coronary artery disease A Negative Examination 1-10 Minimal Plaque burden. Significant coronary artery disease very unlikely. 11-100 Mild plaque burden. Likely mild or minimal coronary atherosclerosis. 101-400 Moderate plaque burden Moderate non-obstructive coronary artery disease highly likely. Over 400 Extensive plaque burden. High likelihood of at least one significant coronary stenosis (>50% diameter) Calcium Score: 101 - 400 Moderate non-obstructive coronary artery disease highly like
== END | disposition home or self-care (01) ==
PROVIDERS: PCP Family Medicine
DX: Z13.6 Encounter for screening for cardiovascular disorders (principal)
CPT/HCPCS: 75571; 76380